=== PATIENT | male | born 1980 | race Caucasian/White ===

== ENCOUNTER 2018-01-12 10:49 | Emergency (ER) | payer OTHER ==
[~2018-01-12] VITALS: Ht 182.9 cm; Wt 77.1 kg
[2018-01-12] MEDS ORDERED: ERYT1OIN RIGHTEYE (15:37)
== END 2018-01-12 16:04 | disposition home or self-care (01) ==
LOC: ER 10:49
DX: S05.01XA Injury of conjunctiva and corneal abrasion without foreign body, right eye, initial encounter (principal); X58.XXXA Exposure to other specified factors, initial encounter
CPT/HCPCS: 70481; 99284-25; Q9967